=== PATIENT | male | born 1950 | race Caucasian/White ===

== ENCOUNTER 2020-05-31 18:47 | Emergency (ER) | payer MEDICARE ==
[~2020-05-31] VITALS: Ht 172.7 cm; Wt 77.1 kg
--- NOTE | 2020-05-31 19:00 | NUR ---
pending MD evaluation@this time
--- NOTE | 2020-05-31 19:06 | NUR ---
Dr [email or web address] evaluating patient, pending MD orders
[2020-05-31] MEDS ORDERED: IBUPROFEN 600 MG TABLET PO ONE (19:15)
--- NOTE | 2020-05-31 19:30 | NUR ---
Patient discharged to home in stable condition. Written and verbal after care instructions given. Patient verbalizes understanding of instructions. Stressed follow up or return to ER for worsening s/s. Ambulated out of ER in steady gait. Mr. Manley fdc admin picked up patient.
[2020-05-31 19:31] VITALS: BP 130/70
== END 2020-05-31 19:32 | disposition home or self-care (01) ==
LOC: ER 18:47
DX: G89.29 Other chronic pain (principal); M25.561 Pain in right knee; Z88.0 Allergy status to penicillin
CPT/HCPCS: A4663

== ENCOUNTER 2020-06-29 10:47 | Emergency (ER) | payer MEDICARE ==
[~2020-06-29] VITALS: Ht 172.7 cm; Wt 68.0 kg
== END 2020-06-29 11:43 | disposition home or self-care (01) ==
LOC: ER 10:47
DX: M17.31 Unilateral post-traumatic osteoarthritis, right knee (principal); T14.90XS Injury, unspecified, sequela; V03.99XS Pedestrian with other conveyance injured in collision with car, pick-up truck or van, unspecified whether traffic or nontraffic accident, sequela
CPT/HCPCS: A4663

== ENCOUNTER 2021-08-23 18:28 | Inpatient (IN) | payer MEDICARE, OTHER ==
[~2021-08-23] VITALS: Ht 177.8 cm; Wt 73.1 kg
--- NOTE | 2021-08-23 19:05 | NUR ---
RECIEVED REPORT FROM GABO RAMIREZ. PT NOTED TO BE IN BED CALM AND COOPERATIVE, DENIES ANY PAIN/DISCOMFORT. CAREGIVER AT BEDSIDE.
--- NOTE | 2021-08-23 19:17 | NUR ---
LAB AT BEDSIDE.
[2021-08-23 19:35] LABS: HEMATOCRIT 41.4 % (36.7-47.1); MEAN CORPUSCULAR HEMOGLOBIN 26.8 uug (23.8-33.4); PLATELET COUNT (AUTO) 247 K/uL (152-348)
[2021-08-23 19:36] LABS: CARBON DIOXIDE 28 mmol/L (21-32); CHLORIDE 104 mmol/L (98-107); CREATININE 1.1 mg/dL (0.6-1.3); GLUCOSE 101 mg/dL (74-106); POTASSIUM 3.6 mmol/L (3.5-5.1); UREA NITROGEN, BLOOD 17 mg/dL (7-18)
--- NOTE | 2021-08-23 19:40 | NUR ---
PT TAKEN FOR XRAY.
[2021-08-23 19:47] LABS: ALANINE AMINOTRANSFERASE 30 U/L (16-63); ALKALINE PHOSPHATASE 99 U/L (50-136); ASPARTATE AMINOTRANSFERASE 16 U/L (15-37); BILIRUBIN,DIRECT 0.1 mg/dL (0.0-0.2); BILIRUBIN,TOTAL 0.5 mg/dL (0.2-1.0); TOTAL PROTEIN, SERUM 8.5 g/dL (6.4-8.2)
--- NOTE | 2021-08-23 20:10 | NUR ---
PT CONTINOUSLY ATTEMPTS TO GET OUT OF BED DESPITE REDIRECTION AND REORIENTATION, ATTEMPTED TO PROVIDE DISTRATION AND CALM AND QUIET ENVIRONMENT AND NOTED TO BE INEFFECTIVE. DR. OVERTON MADE AWARE.
[2021-08-23 20:11] LABS: THYROID STIMULATING HORMONE 1.545 mIU/mL (0.358-3.740)
[2021-08-23] MEDS ORDERED: LORAZEPAM 2 MG/1 ML VIAL IM ONE (20:15)
[2021-08-23] MEDS ORDERED: diphenhydrAMINE 50 MG/1 ML VIAL IM ONE (20:15)
[2021-08-23] MEDS ORDERED: HALOPERIDOL LACTATE 5 MG/1 ML VIAL IM ONE (20:15)
[2021-08-23] MEDS ORDERED: HALOPERIDOL LACTATE 5 MG/1 ML VIAL ONE ×2 (20:25→20:27)
[2021-08-23] MEDS ORDERED: diphenhydrAMINE 50 MG/1 ML VIAL ONE (20:25)
[2021-08-23] MEDS ORDERED: LORAZEPAM 2 MG/1 ML VIAL ONE (20:26)
--- NOTE | 2021-08-23 21:17 | NUR ---
CALLED DENIA FROM CRISIS TEAM, GIVEN ETA OF 1 HOUR.
[2021-08-23] MEDS ORDERED: MAGNESIUM HYDROXIDE 30 ML LIQUID UDC PO PRN (22:00)
[2021-08-23] MEDS ORDERED: TEMAZEPAM 15 MG CAPSULE PO PRN (22:00)
[2021-08-23] MEDS ORDERED: ACETAMINOPHEN 325 MG TABLET PO PRN (22:00)
[2021-08-23] MEDS ORDERED: ONDANSETRON 4 MG/2 ML VIAL IV PRN (22:00)
--- NOTE | 2021-08-23 22:17 | NUR ---
DENIA FROM CRISIS AT BEDSIDE TO EVAL PT.
--- NOTE | 2021-08-23 23:19 | NUR ---
CALLED ANTHONY ([facility]) AND NO ANSWER, LEFT VOICEMAIL.
--- NOTE | 2021-08-23 23:31 | NUR ---
GAVE REPORT TO GABO PORTER.
--- NOTE | 2021-08-24 | NUR ---
Pt. admitted to TELE , under care of Dr. Gamez Belongs List completed
[2021-08-24 00:36] VITALS: BP 151/92
--- NOTE | 2021-08-24 00:36 | NUR ---
Pt arrived in the unit for Tele admission via gurney from ER at 2345. Pt is AAO x1 to self, able to answer some simple questions, follows command. No acute distress noted. Pt kept clean and dry, changed to new gown and changed diaper. IV in right wrist #20. Pertinent assessment done. Oriented pt to room. Pt currently sleeping at this time. Safety measures maintained. Call light within reach. Will continue to monitor.
[2021-08-24 04:55] VITALS: BP 137/87
[2021-08-24] MEDS: PANTOPRAZOLE SODIUM 40 MG TABLET.DR PO SCH (06:12)
[2021-08-24 08:09] LABS: HEMATOCRIT 41.2 % (36.7-47.1); MEAN CORPUSCULAR HEMOGLOBIN 26.6 uug (23.8-33.4); MEAN CORPUSCULAR VOLUME 80.6 fL (73.0-96.2); PLATELET COUNT (AUTO) 234 K/uL (152-348)
[2021-08-24 08:26] LABS: BILIRUBIN,TOTAL 0.8 mg/dL (0.2-1.0); CREATININE 1.1 mg/dL (0.6-1.3); MAGNESIUM 2.1 mg/dL (1.8-2.4); PHOSPHOROUS 3.5 mg/dL (2.5-4.9); POTASSIUM 3.4 mmol/L (3.5-5.1); TOTAL PROTEIN, SERUM 7.9 g/dL (6.4-8.2)
[2021-08-24] MEDS: FUROSEMIDE 20 MG/2 ML VIAL IV SCH (08:31)
[2021-08-24] MEDS: METOPROLOL TARTRATE 25 MG TABLET PO SCH ×2 (08:31→20:04)
[2021-08-24] MEDS ORDERED: METOPROLOL TARTRATE 50 MG TABLET PO SCH (09:00)
[2021-08-24] MEDS: LORAZEPAM 2 MG/1 ML VIAL IV PRN ×2 (10:15→17:03)
--- NOTE | 2021-08-24 10:20 | NUR ---
patient is anxious attempting to pull on telemetry leads, attempting to jump out of bed, attempted to redirect with no effect, offered toileting, snacks. prn ativan administered and tolerated well.
[2021-08-24] MEDS ORDERED: POTASSIUM CHLORIDE 20 MEQ TAB.PRT.SR PO ONE (10:45)
[2021-08-24 12:00] VITALS: BP 151/72
[2021-08-24 16:00] VITALS: BP 139/80
--- NOTE | 2021-08-24 19:30 | NUR ---
RECEIVED PT AWAKE, ALERT AND ORIENTEDX2. PT IN NO ACUTE DISTRESS. PT IV INTACT. PT TRYING TO TAKE OFF HIS GOWN AND PULL OUT HIS IV.PT NEEDS REORIENTATION.. SAFETY AND COMFORT PROVIDED. WILL CONTINUE TO MONITOR.
[2021-08-24 20:12] VITALS: BP 154/77
[2021-08-24] MEDS ORDERED: DOCUSATE SODIUM 100 MG CAPSULE PO SCH (21:00)
[2021-08-24] MEDS ORDERED: DOCUSATE SODIUM 250 MG CAPSULE PO SCH (21:00)
[2021-08-24] MEDS ORDERED: ATORVASTATIN 10 MG TABLET PO SCH (21:00)
[2021-08-24 23:30] VITALS: BP_SYST 109; BP_SYST 146; BP_SYST 148; BP_DIAS 52; BP_DIAS 81; BP_DIAS 89
--- NOTE | 2021-08-25 01:03 | NUR ---
PT GIVEN ATIVAN 1MG PRN AT 0000H FOR RESTLESSNESS. PT TRYING TO TAKE OFF HIS GOWN AND PULLING PUT HIS IV. PT STABLE WILL CONTINUE TO MONITOR.PT CALM NOW AND RESTING.
[2021-08-25 04:12] VITALS: BP 133/64
[2021-08-25] MEDS: PANTOPRAZOLE SODIUM 40 MG TABLET.DR PO SCH (06:03)
--- NOTE | 2021-08-25 06:13 | NUR ---
PT SLEPT INTERMITTENTLY. PT IN NO ACUTE RESPIRATORY DISTRESS. PRESCRIBED MEDICATION GIVEN AND PT TOLERATED IT WELL. PT GIVEN TYLENOL 650 MG PRN AT 2004H. PT STABLE.PT IV INTACT.SAFETY AND COMFORT PROVIDED. WILL ENDORSE TO INCOMING NURSE FOR CONTINUITY OF CARE.
[2021-08-25] MEDS: METOPROLOL TARTRATE 25 MG TABLET PO SCH (09:49)
[2021-08-25] MEDS: FUROSEMIDE 20 MG/2 ML VIAL IV SCH (09:50)
[2021-08-25] MEDS: LORAZEPAM 2 MG/1 ML VIAL IV PRN ×2 (11:01)
[2021-08-25 12:13] VITALS: BP 142/83
[2021-08-25] MEDS ORDERED: DOCU-141 PO (15:19)
[2021-08-25] MEDS ORDERED: PANT40TA49 PO (15:19)
[2021-08-25] MEDS ORDERED: TEMA15CA PO (15:19)
[2021-08-25] MEDS ORDERED: METO25TA6 PO (15:19)
[2021-08-25] MEDS ORDERED: ATOR10TA PO (15:19)
[2021-08-25] MEDS ORDERED: ACET325T53 PO (15:19)
[2021-08-25] MEDS ORDERED: MAGN400O6 PO (15:19)
--- NOTE | 2021-08-25 16:22 | NUR ---
new order to d/c patient, patient to go to MHU, all paperwork signed, patient unable to sign due to cognitive impairment. Report given to KELLIE AYON. all questions answered. Patient wheeled to MHU.
== END 2021-08-25 16:25 | DRG 291 ==
LOC: ER 18:31 → TELE3 23:40 → MEDSURG3 08-24 10:58
PROVIDERS: ADMIT Internal Medicine; ATTEND Internal Medicine
DX: I11.0 Hypertensive heart disease with heart failure (principal); G92.8 Other toxic encephalopathy; I50.31 Acute diastolic (congestive) heart failure; D68.59 Other primary thrombophilia; F03.91 Unspecified dementia, unspecified severity, with behavioral disturbance; R41.82 Altered mental status, unspecified; Z20.822 Contact with and (suspected) exposure to COVID-19; Z74.09 Other reduced mobility; F29 Unspecified psychosis not due to a substance or known physiological condition; Z91.81 History of falling
CPT/HCPCS: 36415; 70030-TC; 70450; 71045; 71250; 74018; 83735; 84100; 84443; 85025; 85651; 85730; 93005; 93307; A4663; G0378; J1200; J1630; J1940; J2060

== ENCOUNTER 2021-08-25 16:25 | Inpatient (IN) | payer MEDICARE, OTHER ==
[~2021-08-25] VITALS: Ht 172.7 cm; Wt 72.6 kg
[~2021-08-25 16:25] MED LIST: ACET325T53 PO; ATOR10TA PO; DOCU-141 PO; MAGN400O6 PO; METO25TA6 PO; PANT40TA49 PO; TEMA15CA PO
--- NOTE | 2021-08-25 17:39 | NUR ---
ADMISSION NOTE: Patient was admitted from [facility] unit to room 139-A on MHU on a 5150 hold for GD. Patient was admitted in a wheelchair accompanied by nursing staff. Patient provided with patient's rights handbook, 5150 hold advisement, and provided with education and orientation to the unit rules and policies. Upon [id number] assessment, patient is alert to name only. Patient is confused, disoriented, and incoherent. Patient noted with garbled speech. He is unable to maintain a linear and logical conversation. Patient denies suicidal and homicidal ideation. Patient denies hallucinations but he is noted to be speaking with unseen others. Patient is unable to provide a history of his mental health and unable to participate in assessment. This expert medical writer spoke with Kaushik Wise, patient's DPOA ([phone]), who was able to provide further information. Mr. Wise stated that the patient has no family, all his family is in [place]. The patient has no history of mental illness and that he has had no history of aggression up until about 1 month ago when he stated showing agitated behaviors. Patient received the 2 doses of the COVID vaccine earlier this year, but is unable to state when. This expert medical writer instructed to bring in OA paperwork.
[2021-08-25 17:41] VITALS: BP 159/85
[2021-08-25] MEDS ORDERED: TEMAZEPAM 7.5 MG CAPSULE PO PRN (17:45)
[2021-08-25] MEDS ORDERED: MAGNESIUM HYDROXIDE 30 ML LIQUID UDC PO PRN ×2 (17:45→19:30)
[2021-08-25] MEDS ORDERED: ACETAMINOPHEN 325 MG TABLET PO PRN (17:45)
[2021-08-25] MEDS ORDERED: MAG HYDROX/AL HYDROX/SIMETH 30 ML LIQUID UDC PO PRN (17:45)
[2021-08-25] MEDS ORDERED: ACETAMINOPHEN 325 MG TABLET-SA PATIENTS-PAIN ONLY PO PRN (19:30)
[2021-08-25 20:12] VITALS: BP 136/94
[2021-08-25] MEDS: DOCUSATE SODIUM 100 MG CAPSULE PO SCH (20:30)
[2021-08-25] MEDS: ATORVASTATIN 10 MG TABLET PO SCH (20:30)
[2021-08-25] MEDS: METOPROLOL TARTRATE 25 MG TABLET PO SCH (20:32)
--- NOTE | 2021-08-26 03:25 | NUR ---
Received patient in the hallway, hyperverbal, med compliant, poor insight and poor judgement. Patient will remain in a psych facility for further evaluation and treatment.
[2021-08-26] MEDS: PANTOPRAZOLE SODIUM 40 MG TABLET.DR PO SCH (06:26)
[2021-08-26 07:30] VITALS: BP 144/74
[2021-08-26] MEDS: LORAZEPAM 0.5 MG TABLET PO PRN ×2 (07:58→19:47)
--- NOTE | 2021-08-26 08:00 | NUR ---
Patient is screaming, hitting his hands on the table, and banging his fists against the wall. This aligner typewriter attempted to provide reality orientation to the patient due to confusion but due to altered mental status patient is unable to participate and is refusing to follow redirection from staff. patient provided with Ativan PO PRN as ordered.
[2021-08-26] MEDS: METOPROLOL TARTRATE 25 MG TABLET PO SCH ×2 (08:05→20:09)
[2021-08-26 08:38] LABS: BILIRUBIN,TOTAL 0.7 mg/dL (0.2-1.0); POTASSIUM 4.1 mmol/L (3.5-5.1); TOTAL PROTEIN, SERUM 8.7 g/dL (6.4-8.2)
[2021-08-26 08:51] LABS: CREATININE 1.1 mg/dL (0.6-1.3)
[2021-08-26 12:23] LABS: HEMATOCRIT 41.8 % (36.7-47.1); MEAN CORPUSCULAR HEMOGLOBIN 26.7 uug (23.8-33.4); MEAN CORPUSCULAR VOLUME 80.2 fL (73.0-96.2); PLATELET COUNT (AUTO) 247 K/uL (152-348)
[2021-08-26 15:03] VITALS: BP 150/91
--- NOTE | 2021-08-26 15:30 | NUR ---
Firearms Report: Mail Delivery Supervisor completed and submitted a [employer] firearms report for 5150 grave disability certifications. A copy of report has been placed in patient chart.
--- NOTE | 2021-08-26 18:02 | NUR ---
Patient is alert and oriented to name only. he is unable to participate in assessment or maintain any linear or logical conversation. Patient requires constant redirection and reality orientation. Patient frequently mumbles incoherent words to himself, he is easily agitated, labile in mood, and unpredictable in behavior. patient requires maximum assistance with ADL's, ambulation, toileting, and feeding. patient became aggressive and screaming at staff when he was assisted to the restroom. Patient is incontinent. patient is unable to participate in education due to disorientation, confusion, and altered mental status. patient's safety maintained.
[2021-08-26] MEDS: GABAPENTIN 100 MG CAPSULE PO SCH (18:09)
--- NOTE | 2021-08-26 19:25 | NUR ---
Patient is anxious, agitated, restless, and he is . BP is 171/94, pulse 98. Dr. Obrien notified. Orders received for amlodipine 5 mg PO daily, first dose now. orders noted and carried out.
[2021-08-26 20:00] VITALS: BP 171/74
[2021-08-26] MEDS: ATORVASTATIN 10 MG TABLET PO SCH (20:07)
[2021-08-26] MEDS: AMLODIPINE 5 MG TABLET PO SCH (20:07)
[2021-08-26] MEDS: DOCUSATE SODIUM 100 MG CAPSULE PO SCH (20:07)
[2021-08-26] MEDS: QUETIAPINE FUMARATE 25 MG TABLET PO SCH (20:10)
--- NOTE | 2021-08-26 23:04 | NUR ---
Re check of the patients b/p after the medication was 132/70. Continuing to monitor and treat as needed.
--- NOTE | 2021-08-27 02:33 | NUR ---
Received this patient awake and confused in a Susan chair. The patient was very restless and agitated. This typewriter assembly and parts inspector was not able to engage in any meaningful conversation, or redirect him. The patient was hallucinating and having conversations with people who were not there. Patient took the medications with a lot of encouragement and assistance. Cement Tester Assistant noticed that the patient is a high risk for aspiration. A swallow evaluation has been ordered. When taken to the bathroom, the patient was shouting and resisting care. With assistance of 2 other people, the patient was put in bed and fell asleep almost right away. Safety stratiges are in place, and staff is continuing to monitor for any behavior escalation.
[2021-08-27] MEDS: PANTOPRAZOLE SODIUM 40 MG TABLET.DR PO SCH (05:26)
[2021-08-27 07:30] VITALS: BP 135/76
[2021-08-27] MEDS: METOPROLOL TARTRATE 25 MG TABLET PO SCH ×2 (08:21→20:12)
[2021-08-27] MEDS: GABAPENTIN 100 MG CAPSULE PO SCH ×3 (08:21→17:21)
[2021-08-27] MEDS: AMLODIPINE 5 MG TABLET PO SCH (08:21)
--- NOTE | 2021-08-27 11:34 | NUR ---
GPS: PT ALERT AND VERBALLY RESPONSIVE BUT CONFUSED AND DISORIENT TO PLACE AND TIME. PT FEELS SCARED OF FALLING EVEN WHEN JUST DOING THE REPOSITIONING. NO AGITATION AT THIS TIME, COMPLIANT WITH MEDICATIONS. RESPONDS WHEN ASKED.
--- NOTE | 2021-08-27 12:45 | NUR ---
KASH SNF Referral: KASH faxed patient's referral packet to [facility] (F:[phone]) attention to [employer] admissions representative.
--- NOTE | 2021-08-27 14:42 | NUR ---
KASH DPOA Contact: KASH spoke with Kaushik AGUILAR ([phone]) and discussed treatment and discharge plan. Patient may require a short term SNF. KASH will continue to work with patient and MD to ensure a safe and proper discharge plan.
--- NOTE | 2021-08-27 14:42 | NUR ---
KASH Initial Discharge Plan: [place] [address] with Kaushik AGUILAR ([phone]). Patient will return once ready for discharge. KASH spoke with Kaushik AGUILAR ([phone]) and discussed treatment and discharge plan. KASH will continue to work with patient and MD to ensure a safe and proper discharge plan.
[2021-08-27 16:00] VITALS: BP 120/67
[2021-08-27 17:45] LABS: *BILIRUBIN,URIN 1+ (NEGATIVE); *BLOOD, URINE NEGATIVE (NEGATIVE); *CLARITY,URINE CLEAR (CLEAR); *COLOR,URINE DARK YELLOW (YELLOW); *KETONES,URINE NEGATIVE (NEGATIVE); *UROBILINOGEN,URINE 0.2 E.U./dl (NORMAL); LEUKOCYTE ESTERASE ,URINE NEGATIVE (NEGATIVE); NITRITE, URINE NEGATIVE (NEGATIVE); PH,URINE 5.5 (5.0-8.0); UGLUCOSE NEGATIVE (NEGATIVE)
[2021-08-27 19:49] VITALS: BP 123/72
[2021-08-27] MEDS: QUETIAPINE FUMARATE 25 MG TABLET PO SCH (20:11)
[2021-08-27] MEDS: ATORVASTATIN 10 MG TABLET PO SCH (20:11)
[2021-08-27] MEDS: DOCUSATE SODIUM 100 MG CAPSULE PO SCH (20:11)
[2021-08-28] MEDS: PANTOPRAZOLE SODIUM 40 MG TABLET.DR PO SCH (06:13)
[2021-08-28 07:30] VITALS: BP 147/60
[2021-08-28] MEDS: GABAPENTIN 100 MG CAPSULE PO SCH ×3 (08:11→17:00)
[2021-08-28] MEDS: AMLODIPINE 5 MG TABLET PO SCH (08:11)
[2021-08-28] MEDS: METOPROLOL TARTRATE 25 MG TABLET PO SCH ×2 (08:12→20:14)
--- NOTE | 2021-08-28 11:35 | NUR ---
GPS: PT 8797 14 DAY HOLD FAXED TO [facility] HEARING FOR GRAVELY DISABLED. PT WAS GIVEN A COPY AND MADE AWARE.
--- NOTE | 2021-08-28 13:30 | NUR ---
GPS: PT ALERT AND ORIENTED TO NAME. PT ABLE TO COMMUNICATE WITH OTHER PT AND REDIRECTABLE WHEN PT BECOMES ANXIOUS. PT COOPERATIVE WITH CARE AND COMPLIANT WITH MEDICATIONS. PT HAVE EPISODE OF TALKING TO HIMSELF.
[2021-08-28 16:59] VITALS: BP 125/72
[2021-08-28 20:00] VITALS: BP 105/66
[2021-08-28] MEDS: DOCUSATE SODIUM 100 MG CAPSULE PO SCH (20:12)
[2021-08-28] MEDS: ATORVASTATIN 10 MG TABLET PO SCH (20:14)
[2021-08-28] MEDS: QUETIAPINE FUMARATE 25 MG TABLET PO SCH (20:14)
[2021-08-28] MEDS: LORAZEPAM 0.5 MG TABLET PO PRN (20:15)
[2021-08-28] MEDS: TEMAZEPAM 15 MG CAPSULE PO PRN (21:31)
[2021-08-29] MEDS: QUETIAPINE FUMARATE 25 MG TABLET PO PRN (00:35)
[2021-08-29] MEDS: PANTOPRAZOLE SODIUM 40 MG TABLET.DR PO SCH (05:48)
[2021-08-29 07:30] VITALS: BP 125/66
[2021-08-29] MEDS: METOPROLOL TARTRATE 25 MG TABLET PO SCH ×2 (08:16→20:17)
[2021-08-29] MEDS: GABAPENTIN 100 MG CAPSULE PO SCH ×3 (08:16→16:04)
[2021-08-29] MEDS: AMLODIPINE 5 MG TABLET PO SCH (08:16)
[2021-08-29] MEDS: QUETIAPINE FUMARATE 25 MG TABLET PO SCH ×2 (13:00→20:16)
[2021-08-29 16:30] VITALS: BP 134/86
[2021-08-29 20:00] VITALS: BP 135/63
[2021-08-29] MEDS: ATORVASTATIN 10 MG TABLET PO SCH (20:15)
[2021-08-29] MEDS: DOCUSATE SODIUM 100 MG CAPSULE PO SCH (20:15)
[2021-08-29] MEDS: TEMAZEPAM 15 MG CAPSULE PO PRN (23:53)
[2021-08-30] MEDS: PANTOPRAZOLE SODIUM 40 MG TABLET.DR PO SCH (06:13)
[2021-08-30] MEDS: GABAPENTIN 100 MG CAPSULE PO SCH ×3 (08:21→16:41)
[2021-08-30] MEDS: METOPROLOL TARTRATE 25 MG TABLET PO SCH ×2 (08:21→20:39)
[2021-08-30 08:22] VITALS: BP 125/71
[2021-08-30] MEDS: QUETIAPINE FUMARATE 25 MG TABLET PO SCH ×3 (08:22→20:38)
[2021-08-30] MEDS: AMLODIPINE 5 MG TABLET PO SCH (08:22)
[2021-08-30 16:35] VITALS: BP 100/62
[2021-08-30 20:00] VITALS: BP 118/67
[2021-08-30] MEDS: ATORVASTATIN 10 MG TABLET PO SCH (20:38)
[2021-08-30] MEDS: DOCUSATE SODIUM 100 MG CAPSULE PO SCH (20:39)
[2021-08-30] MEDS: TEMAZEPAM 15 MG CAPSULE PO PRN (22:35)
[2021-08-31] MEDS: QUETIAPINE FUMARATE 25 MG TABLET PO PRN (02:10)
--- NOTE | 2021-08-31 02:34 | NUR ---
Received pt awake, no s/s of distress, no complaints of pain. HS meds administered, assisted to the bathroom before bedtime. Snacks and skin care provided. Observed to be hyperverbal, talking to self. Reoriented and redirected as needed. PRN meds administered per MD order. Safety precautions remain in place.
[2021-08-31] MEDS: LORAZEPAM 0.5 MG TABLET PO PRN ×2 (03:16→16:08)
--- NOTE | 2021-08-31 05:53 | NUR ---
HS dose of Metoprolol held d/t episode of decreased BP earlier in the day. Increased some after interventions. VS WNL during the shift.
[2021-08-31] MEDS: PANTOPRAZOLE SODIUM 40 MG TABLET.DR PO SCH (06:10)
[2021-08-31 07:30] VITALS: BP 133/77
[2021-08-31] MEDS: GABAPENTIN 100 MG CAPSULE PO SCH ×3 (08:18→16:08)
[2021-08-31] MEDS: METOPROLOL TARTRATE 25 MG TABLET PO SCH ×2 (08:18→20:02)
[2021-08-31] MEDS: QUETIAPINE FUMARATE 25 MG TABLET PO SCH ×3 (08:18→20:01)
[2021-08-31] MEDS: AMLODIPINE 5 MG TABLET PO SCH (08:18)
[2021-08-31 15:53] VITALS: BP 129/79
[2021-08-31] MEDS: DOCUSATE SODIUM 100 MG CAPSULE PO SCH (20:01)
[2021-08-31] MEDS: ATORVASTATIN 10 MG TABLET PO SCH (20:01)
[2021-08-31 20:05] VITALS: BP 121/81
[2021-08-31] MEDS: TEMAZEPAM 15 MG CAPSULE PO PRN (22:17)
[2021-09-01] MEDS: PANTOPRAZOLE SODIUM 40 MG TABLET.DR PO SCH (06:17)
[2021-09-01 08:14] VITALS: BP 140/76
[2021-09-01] MEDS: GABAPENTIN 100 MG CAPSULE PO SCH ×3 (09:08→16:36)
[2021-09-01] MEDS: METOPROLOL TARTRATE 25 MG TABLET PO SCH ×2 (09:08→20:03)
[2021-09-01] MEDS: QUETIAPINE FUMARATE 25 MG TABLET PO SCH ×3 (10:33→20:02)
--- NOTE | 2021-09-01 11:00 | NUR ---
COURT HEARING: Patient's probable cause hearing for the 5250 hold was today. 5250 hold upheld for GD.
[2021-09-01] MEDS: LORAZEPAM 0.5 MG TABLET PO PRN (13:39)
[2021-09-01 16:17] VITALS: BP 154/82
--- NOTE | 2021-09-01 18:17 | NUR ---
Patient is oriented to name only. Patient requires constant redirection and reality orientation and is unable to participate in meaningful conversation. Patient is easily agitated, labile in mood, and unpredictable in behavior. He screams at staff and is seen to be speaking with unseen others. Patient requires maximum assistance with ADL's, ambulation, toileting, and feeding. Patient is constnatly instructed on how to communicate needs to staff and educated about impulse control but is unable to participate in education due to disorientation and confusion. Patient tolerating food and fluids well.
[2021-09-01 20:01] VITALS: BP 153/75
[2021-09-01] MEDS: ATORVASTATIN 10 MG TABLET PO SCH (20:02)
[2021-09-01] MEDS: DOCUSATE SODIUM 100 MG CAPSULE PO SCH (20:03)
--- NOTE | 2021-09-01 22:00 | NUR ---
Dr Maxwell, who is in the unit, was notify of patient refusing Zyprexa all day. will continue to monitor.
[2021-09-01] MEDS: TEMAZEPAM 15 MG CAPSULE PO PRN (22:50)
[2021-09-02] MEDS: PANTOPRAZOLE SODIUM 40 MG TABLET.DR PO SCH (06:38)
[2021-09-02 07:30] VITALS: BP 163/79
[2021-09-02] MEDS: QUETIAPINE FUMARATE 25 MG TABLET PO SCH ×3 (08:24→20:23)
[2021-09-02] MEDS: GABAPENTIN 100 MG CAPSULE PO SCH ×3 (08:24→17:23)
[2021-09-02] MEDS: METOPROLOL TARTRATE 25 MG TABLET PO SCH ×2 (08:25→20:22)
[2021-09-02] MEDS: LORAZEPAM 0.5 MG TABLET PO PRN (14:24)
[2021-09-02 16:18] VITALS: BP 139/72
--- NOTE | 2021-09-02 17:40 | NUR ---
GPS: PT ON FABIÁN-CHAIR FOR SAFETY. PT TALKS TO HIMSELF. LIKES TO TALK WITH OTHERS. PT HAVE LOOSENESS OF ASOCIATION. JUMPING FROM ONE TOPIC TO ANOTHER. HE SAID HE WANTS TO GO TO [facility]. NEXT THING HE WANTS TO GO TO [place]. PT THOUGHT HE WAS IN NURSING HOME. RE-ORIENTED PT THAT HE'S IN THE HOSPITAL AND PT WAS HAPPY ABOUT IT. PT NEEDS FOR REDIRECTING PT IS DISORIENTED AND CONFUSED. COMPLIANT WITH MEDICATIONS. A BIT AGITATED WHEN BEING HELPING WITH HIS BATHROOM CHORES.
--- NOTE | 2021-09-02 18:41 | NUR ---
GPS: PT GIVEN MILK OF MAGNESIA DUR TO CONSTIPATION. PT TOLERATED WELL.
[2021-09-02] MEDS: DOCUSATE SODIUM 100 MG CAPSULE PO SCH (20:13)
[2021-09-02] MEDS: ATORVASTATIN 10 MG TABLET PO SCH (20:22)
[2021-09-02] MEDS: TEMAZEPAM 15 MG CAPSULE PO PRN (22:35)
[2021-09-02 23:19] VITALS: BP 155/68
--- NOTE | 2021-09-03 03:01 | NUR ---
Received the patient at the start of the shift, sitting in a juan chair. Affect bright, alert but confused. Patient was pleasant and calm. Able to let needs known. The patient ate snack per self and was medication compliant. Maximum assistance needed when toileting and put into bed. No acute behavioral issues noted. Safety stratiges in place
[2021-09-03] MEDS: PANTOPRAZOLE SODIUM 40 MG TABLET.DR PO SCH (06:12)
[2021-09-03 07:30] VITALS: BP 161/83
[2021-09-03] MEDS: QUETIAPINE FUMARATE 25 MG TABLET PO SCH ×3 (08:26→20:19)
[2021-09-03] MEDS: METOPROLOL TARTRATE 25 MG TABLET PO SCH ×2 (08:26→20:20)
[2021-09-03] MEDS: GABAPENTIN 100 MG CAPSULE PO SCH ×3 (08:26→16:43)
[2021-09-03 08:51] LABS: MAGNESIUM 2.2 mg/dL (1.8-2.4); POTASSIUM 3.9 mmol/L (3.5-5.1)
[2021-09-03] MEDS ORDERED: PNEUMOCOCCAL 23-VAL P-SAC VAC 0.5 ML VIAL IM ONE (09:00)
[2021-09-03] MEDS ORDERED: INFLUENZA VACCINE 2021-2022 0.5 ML DISP.SYRIN IM ONE (09:00)
--- NOTE | 2021-09-03 09:10 | NUR ---
FLU VACCINE GIVEN ORDERED. NO ADVERSE REACTION NOTED.
[2021-09-03 16:00] VITALS: BP 112/60
--- NOTE | 2021-09-03 17:06 | NUR ---
GPS: Remain confused and disoriented . reoriention provided. continue plan of care. calm and cooperative with meds and care. pna vaccine given as ordered. covid-19 test sent to lab. continue plan of care.
[2021-09-03 20:08] VITALS: BP 117/52
[2021-09-03] MEDS: DOCUSATE SODIUM 100 MG CAPSULE PO SCH (20:19)
[2021-09-03] MEDS: ATORVASTATIN 10 MG TABLET PO SCH (20:20)
[2021-09-04] MEDS: PANTOPRAZOLE SODIUM 40 MG TABLET.DR PO SCH (06:24)
--- NOTE | 2021-09-04 07:45 | NUR ---
SW Discharge Note [facility] [address] [facility] [address] ([phone][facility] Patient will be provided with ambulance transportation today at 12pm. Spoke with Carolina, marketing proposal coordinator at the facility who stated they are ready to accept the patient today. Patient is aware and agreeable with discharge plans and presents with appropriate mood and congruent affect. Patient is alert and oriented x3, is unable to plan for self-care, however, is willing to receive care provided for him at [facility]. Patient denies any suicidal or homicidal ideation. Patient will followup at the facility with Psychiatrist Dr. Muñiz and Lead Technical Writer Dr. Billings. Patients LAUREN Faulkner Billie ([phone]) is aware and agreeable with discharge plan.
[2021-09-04 08:59] VITALS: BP 113/57
[2021-09-04] MEDS: METOPROLOL TARTRATE 25 MG TABLET PO SCH (08:59)
[2021-09-04] MEDS: GABAPENTIN 100 MG CAPSULE PO SCH ×2 (09:01→12:06)
[2021-09-04] MEDS: QUETIAPINE FUMARATE 25 MG TABLET PO SCH ×2 (09:01→12:06)
--- NOTE | 2021-09-04 11:42 | NUR ---
Gps/Muff Winder- Called [facility] , called report to Nurse José Miguel, informed excelsior picker time of 1200 . All belongings given back to patient .No complaints , no discomfort, was well informed of his discharged plan, LAUREN Wise aware of dc. this pm.
--- NOTE | 2021-09-04 12:30 | NUR ---
Gps/Animal Science Instructor- Discharge to [facility] via ambulance, in good spirit, all belongings given back to patient. no complaints noted.
== END 2021-09-04 12:30 | DRG 885 ==
LOC: GPS 16:25 → UNDOADMIN 17:16 → GPS 17:16
PROVIDERS: ADMIT Psychiatry & Neurology Psychosomatic Medicine; ATTEND Internal Medicine
DX: F29 Unspecified psychosis not due to a substance or known physiological condition (principal); G93.49 Other encephalopathy; I10 Essential (primary) hypertension; E78.5 Hyperlipidemia, unspecified; F03.90 Unspecified dementia, unspecified severity, without behavioral disturbance, psychotic disturbance, mood disturbance, and anxiety; R79.89 Other specified abnormal findings of blood chemistry; R26.81 Unsteadiness on feet; Z20.822 Contact with and (suspected) exposure to COVID-19
CPT/HCPCS: 36415; 72125; 83735; 85025; 87086; 90686; 90732; 93005; 97161